=== PATIENT | female | born 1960 | race Two or more races ===

== ENCOUNTER 2025-05-07 07:16 | Emergency (ER) | payer MEDICARE, MEDICAID, SELFPAY ==
[2025-05-07 07:16] VITALS: BMI 29.2
[2025-05-07 07:25] VITALS: BP 139/69; PULSE 107; RESP 19; TEMP 38.2; O2SAT 97
--- NOTE | 2025-05-07 07:49 | PD.EDURI ---
Upper Respiratory Inf. RME/HPI General Chief Complaint: Flu Like Symptoms Stated Complaint: COUGH X3 WEEKS, MIGRAINE & EARS RINGING X1WEEK Time Seen by Provider: 05/07/25 07:19 Arrival date/time: 05/07/25 07:16 This is a 64-year-old female that comes into the emergency room with complaints of cough for the past 3 weeks, headache, runny nose, congestion, sore throat. Patient states the cough been going on for 3 weeks in the upper respiratory symptoms have been going on for the past couple days. Patient reports history of lupus and migraines. Related Data Home Medications ?Medication ?Instructions ?Recorded ?Confirmed buspirone 5 mg tablet 1 tab PO BID 03/06/22 06/26/22 famotidine 20 mg tablet 20 mg PO QDAY 03/06/22 06/26/22 levocetirizine 5 mg tablet (Xyzal) 5 mg PO QDAY PRN Allergy Symptoms 03/06/22 06/26/22 ondansetron HCl 4 mg tablet 4 mg PO Q6H 03/06/22 06/26/22 amlodipine 5 mg tablet (Norvasc) 5 mg PO QDAY 03/20/22 06/26/22 hydroxyzine HCl 25 mg tablet 25 mg PO QID PRN Anxiety 03/20/22 06/26/22 pregabalin 25 mg capsule (Lyrica) 25 mg PO QDAY 03/20/22 06/26/22 hydroxychloroquine 200 mg tablet 200 mg PO QDAY 06/26/22 06/26/22 (Plaquenil) prednisone 1 mg tablet 1 mg PO QDAY 06/26/22 06/26/22 sumatriptan succinate 25 mg tablet 25 mg PO Q2H PRN Migraine Headache 06/26/22 06/26/22 Previous Rx's ?Medication ?Instructions ?Recorded azithromycin 250 mg tablet See Rx Instructions PO .COMPLEX #6 05/07/25 tabs promethazine-DM 6.25 mg-15 mg/5 mL 5 ml PO Q6H PRN cough #120 mL 05/07/25 oral syrup Allergies Allergy/AdvReac Type Severity Reaction Status Date / Time azathioprine (From Imuran) Allergy Rash Verified 05/07/25 07:19 duloxetine (From Cymbalta) Allergy Rash Verified 05/07/25 07:19 methotrexate Allergy Nausea Verified 05/07/25 07:19 rituximab (From Rituxan) Allergy Difficulty Verified 05/07/25 07:19 Breathing Review of Systems Review of Systems Systems Reviewed: All systems reviewed, normal except as documented Past Medical History Past Medical History Comments PMH COMMENT: lupus, migraines ED Exam Narrative Physical exam: VITAL SIGNS: Reviewed. GENERAL APPEARANCE: Alert and interactive, follows commands, no acute distress, HEAD AND FACE: Non-traumatic. ENT: PERRL, conjuctiva pink and clear, eyelid no trauma, Mucous membrane moist. NECK: Supple, nontender, no nuchal rigidity. CHEST: No tenderness, no crepitus, no paradoxical movement, no retractions. LUNGS: Clear, well ventilated, symmetric, no rales, no wheezing, no rhonchi, no stridor, good breath sounds bilaterally. HEART: Regular rate, regular rhythm, no murmur, no gallops. ABDOMEN: Soft, nondistended, no guarding, nontender NEUROLOGICAL: Gross motor function intact sensory function intact, Appropriate for age. MUSCULOSKELETAL: low back nontender, full range of motion. EXTREMITIES: No redness no swelling no skin breakdown on bilateral foot and leg. Distal neurovascular status intact bilateral foot SKIN: Color pink, dry Course Quality Measures none Orders Category Date Time Status Acetaminophen Tab [Tylenol ES Tab] Med 05/07/25 07:46 Discontinued 1,000 mg PO X1 ONE Azithromycin Po [Zithromax PO] Med 05/07/25 07:46 Discontinued 500 mg PO X1 ONE Promethazine/Dextromethorph [Phenergan Dm Syrup] Med 05/07/25 07:46 Discontinued 5 ml PO X1 ONE Vital Signs Vital signs: Vital Signs Temperature 100.7 F H 05/07/25 07:25 Pulse Rate 107 H 05/07/25 07:25 Respiratory Rate 19 05/07/25 07:25 Blood Pressure 139/69 H 05/07/25 07:25 Pulse Oximetry (%) 97 05/07/25 07:25 Oxygen Delivery Method Room Air 05/07/25 07:25 Upper Respiratory Infection MDM Narrative MDM Narrative:: Spoke to patient at length I explained to her to get some rest drink plenty of fluids patient states that she was told by her television tube inspector that they do not want her taking ibuprofen . Her aspirin. Will just treat patient with Tylenol. Patient states she has been coughing and she cannot sleep. Will send patient home with some cough medicine and start patient on azithromycin. Patient states this cough been going on for about 3 weeks now. I did explain to patient that this could also be an upper respiratory infection. Patient concerned because she does have a history of lupus. pt reports she does not take plaquenil anymore. Patient verbalized understanding and stated she would follow-up with her primary doctor in 1 to 2 days. Come back to the emergency room if symptoms change or worsen. Dragon dictation: Although this document has been carefully reviewed, there may still be some phonetic and other typographical errors. These errors are purely grammatical due to imperfections in the software program and should not be construed in any way to compromise the substance of the patient's medical care during this visit. Patient data External records reviewed:: [facility] previous records Clinical information provided by:: patient Social determinants that could affect healthcare access:: none Patient has the following chronic illnesses:: See note How is presenting disease/condition affected by chronic disease/condition?: no chronic disease Evaluation data The following diagnostics were reviewed and interpreted by me:: other (specify) (None) Lab and/or radiology exams considered but not ordered:: none Interpretation Summary: see note Medications / Prescriptions Medications or Prescriptions considered but not ordered:: none Medication administrations:: Medication Administration History Discontinued Medications Acetaminophen (Acetaminophen 500 Mg Tablet) 1,000 mg PO X1 ONE Stop: 05/07/25 07:47 Last Admin: 05/07/25 07:55 Dose: 1,000 mg Documented By: SCOUT Azithromycin (Azithromycin 250 Mg Tablet) 500 mg PO X1 ONE Stop: 05/07/25 07:47 Last Admin: 05/07/25 07:55 Dose: 500 mg Documented By: SCOUT Promethazine HCl/Dextromethorphan (Promethazine/Dm Syrup 5 Ml Dose) 5 ml PO X1 ONE; Protocol Stop: 05/07/25 07:47 Last Admin: 05/07/25 07:56 Dose: 5 ml Documented By: SCOUT See [facility] Consultations Consultation(s) initiated? (list below): No Diagnosis Upper Respiratory Differential Diagnosis: upper respiratory infection, viral infection, bronchitis, influenza and pharyngitis Most likely diagnosis given after review of the tests above:: URI bronchitis Admission Indicated Admission indicated?: not indicated Admission Request Was there a request for admission?: No Disposition Plan Disposition Plan: Discharge Discharge Attestation Discharge Attestation: The patient and all family members were given an opportunity to ask questions and understood the discharge instructions. Discharge instructions specifically effects, indications for sooner follow up or return to the emergency department, and the expected course of current diagnosis. Patient condition: Stable Discharge Plan Plan Patient Disposition: HOME (Self Care) Patient condition on transfer: Stable Prescriptions/Referrals Prescriptions/Med Rec: New azithromycin 250 mg tablet See Rx Instructions .ROUTE .COMPLEX Qty: 6 0RF Rx Instructions: For 250 mg dose pack: take 500 mg today (day 1), then 250 mg for 4 days (days 2-5) promethazine-DM 6.25-15 mg/5 mL syrup 5 ml PO Q6H PRN (Reason: cough) Qty: 120 0RF No Action buspirone 5 mg tablet 1 tab PO BID ondansetron HCl 4 mg Tablet 4 mg PO Q6H famotidine 20 mg Tablet 20 mg PO QDAY levocetirizine [Xyzal] 5 mg Tablet 5 mg PO QDAY PRN (Reason: Allergy Symptoms) amlodipine [Norvasc] 5 mg Tablet 5 mg PO QDAY hydroxyzine HCl 25 mg Tablet 25 mg PO QID PRN (Reason: Anxiety) pregabalin [Lyrica] 25 mg Capsule 25 mg PO QDAY sumatriptan succinate 25 mg Tablet 25 mg PO Q2H PRN (Reason: Migraine Headache) Rx Instructions: do not exceed 8 doses per 24 hrs prednisone 1 mg Tablet 1 mg PO QDAY hydroxychloroquine [Plaquenil] 200 mg Tablet 200 mg PO QDAY Problem List Clinical Impression: Bronchitis Patient/Caregiver Discharge Instructions Discharge Activity: activity as tolerated Education Materials: ED Upper Resp Infec Abx Tx Additional Instructions: Follow up with primary provider in 1-2 days. Come back to ED if symptoms change or worsen Print Language: Iranian Stand Alone Forms: Vesna Award Info., Patient Portal Info Letter PA/POLL CLERK Supervising Physician SHANI/BRADEN Supervising Physician: [email or web address]
[2025-05-07] MEDS: AZITHROMYCIN 250 MG TABLET 500 MG PO (07:55)
[2025-05-07] MEDS: ACETAMINOPHEN 500 MG TABLET 1000 MG PO (07:55)
[2025-05-07] MEDS: PROMETHAZINE/DM SYRUP 5 ML DOSE PO (07:56)
== END 2025-05-07 08:00 | disposition home or self-care (01) ==
LOC: SERX 08:12
PROVIDERS: Emergency Provider Emergency Medicine
DX: J40 Bronchitis, not specified as acute or chronic (principal)
CPT/HCPCS: 99281; A9270